=== PATIENT | male | born 1985 | race Caucasian/White ===

== ENCOUNTER 2018-09-27 09:02 | Day surgery (SDC) | payer BC ==
[2018-09-25 13:41] VITALS: BMI 35.3
--- NOTE | 2018-09-27 08:30 | P.GSHP ---
History of Present Illness H&P Date: 09/27/18 CHIEF COMPLAINT: GERD HISTORY OF PRESENT ILLNESS: The patient is a 33-year-old male who presents reports gastroesophageal reflux disease. Upper endoscopy was offered for further evaluation and management. PAST MEDICAL HISTORY: Please see list. PAST SURGICAL HISTORY: Please see list. MEDICATIONS: Please see list. ALLERGIES: Please see list. SOCIAL HISTORY: No illicit drug use FAMILY HISTORY: No reports of Crohn disease or ulcerative colitis. REVIEW OF ORGAN SYSTEMS: CONSTITUTIONAL: No reports of fevers or chills. GI: Denies any blood in stools or constipation. PHYSICAL EXAM: VITAL SIGNS: Stable GENERAL: Well-developed and pleasant in no acute distress. HEENT: No scleral icterus. Extraocular movements grossly intact. Moist buccal mucosa. NECK: Supple without lymphadenopathy. CHEST: Unlabored respirations. Equal bilateral excursions. CARDIOVASCULAR: Regular rate and rhythm. Distal 2+ pulses. ABDOMEN: Soft, nondistended. MUSCULOSKELETAL: No clubbing, cyanosis, or edema. ASSESSMENT: 1. Gastroesophageal reflux disease PLAN: 1. Recommend proceeding with an upper endoscopy Past Medical History Past Medical History: GERD/Reflux History of Any Multi-Drug Resistant Organisms: None Reported Past Surgical History: No Surgical Hx Reported Additional Past Surgical History / Comment(s): egd Past Anesthesia/Blood Transfusion Reactions: No Reported Reaction Past Psychological History: No Psychological Hx Reported Smoking Status: Former smoker Past Alcohol Use History: Occasional Additional Past Alcohol Use History / Comment(s): quit smoking 9 yrs ago. (2009) . smoked 1 1/2 - 2 ppd. Past Drug Use History: None Reported - Past Family History Father Family Medical History: Cancer Additional Family Medical History / Comment(s): NEUROENDOCRINE CANCER Medications and Allergies Home Medications Medication Instructions Recorded Confirmed Type Amoxicillin (Unknown Dose) 1 tab PO DIRECTED 09/25/18 09/25/18 History Ergocalciferol [Vitamin D2] 50,000 unit PO Q7D 09/25/18 09/25/18 History [place]-3 Fatty Acids/Fish Oil [Fish 1 each PO DAILY 09/25/18 09/25/18 History Oil 1,000 mg Softgel] Omeprazole 20 mg PO DAILY 09/25/18 09/25/18 History Allergies Allergy/AdvReac Type Severity Reaction Status Date / Time amitriptyline [From Elavil] Allergy Severe Anaphylaxis Verified 09/25/18 13:25 codeine Allergy Severe Anaphylaxis Verified 09/25/18 13:25
[~2018-09-27 09:02] MED LIST: LACTATED RINGERS 1,000 ML IV SCH; LIDOCAINE 1% 20 ML VIAL (10MG/ML) FOR IV START INTRADERMA PRN; MIDAZOLAM (PF) 2 MG/2 ML VIAL IV PRN
[2018-09-27 09:36] VITALS: RESP 18; TEMP 97.6
[2018-09-27] MEDS ORDERED: PROPOFOL 10 MG/ML 20 ML VIAL IV ONE (10:44)
[2018-09-27] MEDS ORDERED: LIDOCAINE 1% INJ 10MG/ML (20 ML MDV) ONE (10:44)
--- NOTE | 2018-09-27 10:54 | P.PCN ---
Date of Procedure: 09/27/18 Description of Procedure: PREOPERATIVE DIAGNOSIS: Gastroesophageal reflux disease. Morbid obesity. POSTOPERATIVE DIAGNOSIS: Morbid obesity. Gastritis. Gastroesophageal reflux disease. OPERATION: Esophagogastroduodenoscopy with biopsies along antrum. SURGEON: Francesca Canchola MD ANESTHESIA: MAC. INDICATIONS: The patient is a 33-year-old male who presents with a history of reflux disease. Benefits and risks of the procedure were described. Informed consent was obtained. DESCRIPTION: The patient was brought into the endoscopy suite and laid in the left lateral decubitus position. An Olympus gastroscope was passed along the posterior oropharynx down to the distal esophagus where the squamocolumnar junction was encountered at 40 cm from the incisors. The stomach was entered and no bile reflux was found. Additional findings are listed below. Biopsies with cold forceps were obtained of the antrum. The first through third portion of the duodenum was examined and unremarkable. Retroflexion of the scope confirmed Hill grade 2 lower esophageal valve. The squamocolumnar junction demonstrated LA grade A erosive esophagitis. During procedure, patient had obstructive sleep apnea. The stomach was desufflated. The patient tolerated the procedure well. FINDINGS: Squamocolumnar junction 40 cm from the incisors. Diaphragmatic hiatus at 40 cm. Hill grade 2 lower esophageal valve. LA grade A erosive esophagitis. No active duodenitis. Chronic gastritis Obstructive sleep apnea RECOMMENDATIONS: Upper endoscopy as needed. Recommend evaluation for obstructive sleep apnea Plan - Discharge Summary Discharge Rx Participant: Yes New Discharge Prescriptions: No Action Ergocalciferol [Vitamin D2] 50,000 unit PO Q7D Omeprazole 20 mg PO DAILY [place]-3 Fatty Acids/Fish Oil [Fish Oil 1,000 mg Softgel] 1 each PO DAILY Discharge Medication List Ergocalciferol [Vitamin D2] 50,000 unit PO Q7D 09/25/18 [History] [place]-3 Fatty Acids/Fish Oil [Fish Oil 1,000 mg Softgel] 1 each PO DAILY [History] Omeprazole 20 mg PO DAILY 09/25/18 [History] Follow up Appointment(s)/Referral(s): Francesca Canchola MD [STAFF PHYSICIAN] - 10/09/18 ([email or web address]) Patient Instructions/Handouts: *[facility] - (Anesthesia) Endoscopy Discharge Instructions, Upper Endoscopy (DC) Discharge Disposition: HOME SELF-CARE
[2018-09-27 11:31] VITALS: BP 112/77; PULSE 75
== END 2018-09-27 11:57 | disposition home or self-care (01) ==
LOC: ORWHC2ENDO 09:02
PROVIDERS: ATTEND Surgery Plastic and Reconstructive Surgery
DX: K21.9 Gastro-esophageal reflux disease without esophagitis (principal); K22.10 Ulcer of esophagus without bleeding; K29.50 Unspecified chronic gastritis without bleeding; Z87.891 Personal history of nicotine dependence; E66.01 Morbid (severe) obesity due to excess calories; Z68.35 Body mass index [BMI] 35.0-35.9, adult; Z79.899 Other long term (current) drug therapy; Z88.5 Allergy status to narcotic agent; Z88.8 Allergy status to other drugs, medicaments and biological substances
CPT/HCPCS: 88305; 43239; J2001; J2704

== ENCOUNTER 2019-05-24 07:34 | Inpatient (IN) | payer BC ==
[2019-05-17 13:59] VITALS: BMI 32.3
--- NOTE | 2019-05-23 18:39 | P.GSHP ---
History of Present Illness H&P Date: 05/24/19 CHIEF COMPLAINT: Paraesophageal hiatal hernia with gastroesophageal reflux disease. HISTORY OF PRESENT ILLNESS: The patient is a 34-year-old male who presents with paraesophageal hiatal hernia. He has completed an esophageal manometry including upper endoscopy workup. Now he presents for surgical intervention. PAST MEDICAL HISTORY: Please see list. PAST SURGICAL HISTORY: Please see list. MEDICATIONS: Please see list. ALLERGIES: Please see list. SOCIAL HISTORY: No illicit drug use FAMILY HISTORY: No reports of Crohn disease or ulcerative colitis. REVIEW OF ORGAN SYSTEMS: CONSTITUTIONAL: No reports of fevers or chills. GI: Denies any blood in stools or constipation. PHYSICAL EXAM: VITAL SIGNS: Stable GENERAL: Well-developed pleasant and in no acute distress. HEENT: No scleral icterus. Extraocular movements grossly intact. Moist buccal mucosa. NECK: Supple without lymphadenopathy. CHEST: Unlabored respirations. Equal bilateral excursions. CARDIOVASCULAR: Regular rate and rhythm. Distal 2+ pulses. ABDOMEN: Soft, nondistended. No peritoneal signs. MUSCULOSKELETAL: No clubbing, cyanosis, or edema. SKIN: Well-perfused. Good skin turgor. MANOMETRY: Shows no evidence of achalasia or scleroderma. ASSESSMENT: 1. Diaphragmatic paraesophageal hiatal hernia with severe gastroesophageal reflux disease. PLAN: 1. Recommend proceeding with a robotic paraesophageal hiatal hernia with possible mesh. 2. Benefits and risks of surgical intervention was discussed including possibility of open technique. 3. Inpatient hospitalization recommended of 2 nights 4. DVT prophylaxis. 5. Antibiotic prophylaxis. 6. She has also completed a very low caloric high-protein diet to address underlying hepatomegaly. Past Medical History Past Medical History: GERD/Reflux History of Any Multi-Drug Resistant Organisms: None Reported Past Surgical History: No Surgical Hx Reported Additional Past Surgical History / Comment(s): egd Past Anesthesia/Blood Transfusion Reactions: No Reported Reaction Smoking Status: Former smoker - Past Family History Father Family Medical History: Cancer Additional Family Medical History / Comment(s): NEUROENDOCRINE CANCER Medications and Allergies Home Medications Medication Instructions Recorded Confirmed Type Ergocalciferol [Vitamin D2] 50,000 unit PO Q7D 09/25/18 05/17/19 History Omeprazole 20 mg PO DAILY 09/25/18 05/17/19 History Cyanocobalamin (Vitamin B-12) 1,000 mcg PO DAILY 05/17/19 05/17/19 History [Vitamin B-12] Allergies Allergy/AdvReac Type Severity Reaction Status Date / Time amitriptyline [From Elavil] Allergy Severe Anaphylaxis Verified 05/17/19 13:54 codeine Allergy Severe Anaphylaxis Verified 05/17/19 13:54
[~2019-05-24 07:34] MED LIST changes: +ACETAMINOPHEN TAB 500 MG TAB PO STA; +CHLORHEXIDINE GLUCONATE 15 ML CUP MUCOUS MEM ONE; +DEXAMETHASONE SOD PHOSPHATE 10 MG/ML 1 ML VIAL IV ONE; +ENOXAPARIN 40 MG/0.4 ML SYRINGE SQ STA; +GABAPENTIN 300 MG CAP PO STA; +HEPARIN SODIUM,PORCINE 5,000 UNIT/ML 1 ML VIAL SQ ONE; -MIDAZOLAM (PF) 2 MG/2 ML VIAL IV PRN; +MIDAZOLAM 2 MG/2 ML VIAL IV PRN; +ONDANSETRON 4 MG/2 ML VIAL IVP ONE; +PANTOPRAZOLE 40 MG/10 ML VIAL IV STA; +SCOPOLAMINE 1.5MG/72HR PATCH TRANSDERM ONE
[2019-05-24 08:00] VITALS: RESP 16
[2019-05-24] MEDS ORDERED: fentaNYL (PF) 50 MCG/ML 2 ML AMP IV ONE (08:11)
[2019-05-24 08:52] LABS: Basophils % (A) 1 %; Eosinophils # (A) 0.1 k/uL (0-0.7); Eosinophils % (A) 3 %; HCT 43.3 % (39.0-53.0); HGB 15.1 gm/dL (13.0-17.5); Lymphocytes # (A) 2.2 k/uL (1.0-4.8); Lymphocytes % (A) 47 %; MCH 28.6 pg (25.0-35.0); MCHC 34.8 g/dL (31.0-37.0); Monocytes # (A) 0.3 k/uL (0-1.0); Monocytes % (A) 7 %; Neutrophils # (A) 1.8 k/uL (1.3-7.7); Neutrophils % (A) 39 %; Platelet Count 235 k/uL (150-450); RBC 5.28 m/uL (4.30-5.90); RDW 12.9 % (11.5-15.5); WBC 4.6 k/uL (3.8-10.6)
[2019-05-24 09:07] LABS: ALT 37 U/L (21-72); AST 26 U/L (17-59); African American GFR (CKD) >90 (>60 ml/min/1.73 sqM); Albumin 4.3 g/dL (3.5-5.0); Alkaline Phosphatase 62 U/L (38-126); Anion Gap 10 mmol/L; Blood Urea Nitrogen 19 mg/dL (9-20); Calcium 9.2 mg/dL (8.4-10.2); Carbon Dioxide 25 mmol/L (22-30); Chloride 105 mmol/L (98-107); Glucose 84 mg/dL (74-99); Potassium 4.5 mmol/L (3.5-5.1); Sodium 140 mmol/L (137-145); Total Bilirubin 0.9 mg/dL (0.2-1.3); Total Protein 7.2 g/dL (6.3-8.2)
--- NOTE | 2019-05-24 09:14 | P.ANPRN ---
Procedure Note - Anesthesia - Nerve Block Performed Bilateral Transversus Abdominis Single Time Out Performed: Yes Date of Procedure: 05/24/19 Procedure Start Time: Procedure Stop Time: Location of Patient Procedure: PreOp Indication: Acute Post-Operative Pain, Requested by Surgeon Sedation Type: Sedate with meaningful contact maintained Preparation: Sterile Prep, Sterile Dressing Position: Supine Catheter: Indwelling Needle Types: Pajunk Needle Gauge: 20 Ultrasound used to visualize needle placement: Yes Ultrasound used to observe medication spread: Yes Injectate: Other (see comment) (ropivacaine 0.25% 20 ml per side) Blood Aspirated: No Pain Paresthesia on Injection Noted: No Resistance on Injection: Normal Image Stored and Saved: Yes Events: Uneventful and Well Tolerated
[2019-05-24] MEDS ORDERED: ROCURONIUM BROMIDE 10 MG/ML 10 ML VIAL IV ONE (09:43)
[2019-05-24] MEDS ORDERED: SUCCINYLCHOLINE CHLORIDE 100 MG/5 ML SYR IV ONE (09:43)
[2019-05-24] MEDS ORDERED: PHENYLEPHRINE-0.9% NACL SYG 1 MG/10 ML SYRINGE ONE (09:43)
[2019-05-24] MEDS ORDERED: ePHEDrine SULFATE/0.9% NACL/PF 50 MG/5 ML SYRINGE IV ONE (09:43)
[2019-05-24] MEDS ORDERED: MIDAZOLAM 2 MG/2 ML VIAL ONE (09:43)
[2019-05-24] MEDS ORDERED: GLYCOPYRROLATE 0.2 MG/ML 2 ML VIAL ONE (09:43)
[2019-05-24] MEDS ORDERED: LIDOCAINE 1% INJ 10MG/ML (20 ML MDV) ONE (09:43)
[2019-05-24] MEDS ORDERED: ROPIVACAINE 5 MG/ML 30 ML VIAL ONE (09:43)
[2019-05-24] MEDS ORDERED: PROPOFOL 10 MG/ML 20 ML VIAL IV ONE (09:43)
[2019-05-24] MEDS ORDERED: NEOSTIGMINE 1 MG/ML 10 ML VIAL ONE (09:43)
[2019-05-24] MEDS ORDERED: DEXAMETHASONE SOD PHOSPHATE 4 MG/ML 1 ML VIAL ONE (09:43)
[2019-05-24] MEDS ORDERED: fentaNYL (PF) 50 MCG/ML 2 ML AMP ONE (09:43)
[2019-05-24] MEDS ORDERED: LIDOCAINE 1%-EPI 1:100,000 20 ML VIAL SQ ONE (10:17)
[2019-05-24] MEDS ORDERED: LACTATED RINGERS 1,000 ML IV ONE (10:32)
--- NOTE | 2019-05-24 11:44 | P.OP ---
Date of Procedure: 05/24/19 Description of Procedure: SURGEON: ANOOP SY MD PREOPERATIVE DIAGNOSES: 1. Symptomatic paraesophageal diaphragmatic hiatal hernia. 2. Gastroesophageal reflux disease. 3. Obesity, BMI 32.4 4. Hypertensive upper esophageal sphincter POSTOPERATIVE DIAGNOSES: 1. Symptomatic paraesophageal diaphragmatic hiatal hernia. 2. Gastroesophageal reflux disease. 3. Obesity, BMI 32.4 4. Hypertensive upper esophageal sphincter 5. Liver hemangioma left posterior lobe edge, 3 cm OPERATION: 1. Robotic-assisted da Slade Xi laparoscopic repair of incarcerated paraesophageal hiatal hernia, 3 x 4 cm, with [place] Biopatch A 8 x 8 cm. 2. Intraoperative esophagogastroduodenoscopy 3. Esophageal dilation with 56-[place] bougie for hypertensive upper esophageal sphincter ANESTHESIA: General with local anesthetic. ESTIMATED BLOOD LOSS: 5 mL SPECIMENS REMOVED: None COMPLICATIONS: None. Condition: stable Disposition: floor FINDINGS: 1. Midline incarcerated paraesophageal hiatal hernia 3 x 4 cm 2. Intraoperative upper endoscopy confirms Hill grade 1 3. Liver hemangioma, left posterior lobe edge 3 cm INDICATIONS: The patient is a 34-year-old male who presents with regurgitation, gastroesophageal reflux disease poorly controlled despite medications, and a symptomatic diaphragmatic hiatal hernia. Preoperative workup including upper endoscopy and esophageal manometry was performed demonstrating hypertensive upper esophageal sphincter. Given the severity of symptoms, he had elected for surgical intervention. Benefits and risks including bleeding, infection, recurrence, dysphagia, injury to the lung, need for further surgery was described at length. Informed consent was obtained. DESCRIPTION: The patient was brought into the operating room and placed in supine position. Preoperatively she had received heparin subcutaneously for DVT prophylaxis. After general induction, the abdomen was prepped and draped in standard sterile fashion. The patient had previously voided prior to coming to the operating room. [place]an draping was placed along the abdomen. A timeout protocol was confirmed with the surgical team, for which the patient's name, procedure to be performed including DVT prophylaxis with bilateral SCDs, and preoperative antibiotics were also confirmed. A robotic da Slade Xi system was prepped and primed. At 12 cm from the xiphoid to just below the umbilicus, proposed port sites were marked with indelible marker along the left axillary line, left mid-clavicular line with each ports were marked 10 cm from each other. A 5 mm 0 degrees laparoscopic trocar entry was performed along the left upper quadrant. The abdomen was insufflated to 15 mmHg pressure was tolerated well. Diagnostic laparoscopy demonstrated no injury to bowel, viscera, or mesentery. No injury had occurred to the small bowel or viscera. Next, one 8 mm robotic port was placed along the right upper abdomen. An 8-mm port was were placed along the left lateral abdominal wall. The camera 8-mm port was maintained along the epigastrium via the hernia defect. Another 12 mm port was placed along the left upper abdominal wall after exchanging the 5 mm port. Please note that the ports were placed at least 20 cm away from the target anatomy. Care was taken to check that each robotic arm were safely away from collision with the bed or the patient. At the epigastrium, a medium sized [place] liver retractor was placed under direct visualization with the [employer] Consultant placed under the right shoulder of the patient. All robotic arms were used. The patient was repositioned in reverse Trendelenburg position at 16-degrees after lowering the bed. The robot was docked above the right side of the patient. Using a grasper for arm 3, a grasper for arm 1, including vessel sealer for arm 2, the robotic system was docked and primed as described. Instruments were int erchanged by the registered dental assistant rda. I had sat at the console. The gastrohepatic ligament was cleaved using a vessel sealer. Next, the phrenoesophageal ligament was mobilized and the distal esophagus was mobilized circumferentially. The left and right crura was identified. Circumferentially, the hernia sac was excised. Dissection into the mediastinum was performed to release the esophagus into the abdominal cavity. Care was taken to avoid any gastrotomy. The measured defect was consistent with 3 cm axial length and 4 cm in width. After dissection, the distal esophagus of 3 cm was brought into the abdominal cavity. Once the hiatus and crura was dissected, 2-0 VLOC suture was placed to reapproximate the diaphragmatic hiatus posteriorly. To buttress the repair, a [place] Biopatch A was prepared along the back table and cut in half of a villalba-hole fashion as to reinforce the repair as an underlay. The mesh was placed along the crural repair and tagged using horizontal mattress sutures using 2-0 VLOC. I went to the head of the bed to perform intraoperative esophagogastroduodenoscopy and placement of a 56Fr bougie. The bougie was passed to dilate the upper esophageal sphincter secondary to hypertensive upper esophageal sphincter. An Olympus gastroscope was passed through posterior oropharynx. Retroflexion of the scope confirmed a Hill grade 1 lower esophageal valve. The stomach had been desufflated. No evidence of leaks were found of the esophagus or stomach. The squamocolumnar junction and hiatus was placed at 40 cm from the incisors. The GI tract with desufflated This concluded the endoscopic portion of the case. The robot was undocked from the patient. I re-scrubbed into the case. All instruments and pneumoperitoneum and specimens were evacuated from the abdominal cavity. Incisions were reapproximated using 4-0 Monocryl in an interrupted subcuticular fashion. Liquid glue was applied to the skin. Local anesthetic was infiltrated in all wounds for postop analgesia. Multiple intra-abdominal films were obtained. At the end of the procedure, needle, sponge, and instrument count was verified correct by the certified surgical tech/first assistant. The patient had tolerated the procedure well and was taken to the postanesthesia unit in stable condition. Intraoperative films were reviewed with the patient's family who was pleased with the level of care. Console time 43 minutes.
[2019-05-24] MEDS: HYDROmorphone 0.5 MG/0.5 ML SYRINGE IVP PRN ×2 (11:50→11:56)
[2019-05-24] MEDS ORDERED: NALOXONE 0.4 MG/ML 1 ML VIAL IV PRN (12:02)
[2019-05-24] MEDS ORDERED: diphenhydrAMINE 50 MG/ML 1 ML VIAL IVP PRN (12:02)
[2019-05-24] MEDS ORDERED: HYOSCYAMINE ORAL DROPS 1.875 MG/15 ML BOTTLE PO PRN (12:02)
[2019-05-24] MEDS ORDERED: ACETAMINOPHEN IV (For NPO) 1,000 MG in EMPTY BAG 1 BAG IVPB ONE (13:00)
[2019-05-24] MEDS ORDERED: KETOROLAC 30 MG/ML 1 ML VIAL IVP SCH (13:00)
[2019-05-24] MEDS ORDERED: 0.9% NACL WITH KCL 20 MEQ/L 1,000 ML IV SCH (13:00)
[2019-05-24 13:01] VITALS: TEMP 97.7
--- NOTE | 2019-05-24 14:13 | P.ANPRN ---
Procedure Note - Anesthesia - Nerve Block Performed Left Supraclavicular Single Time Out Performed: Yes Date of Procedure: 05/24/19 Procedure Start Time: 12:21 Location of Patient Procedure: PreOp Indication: Acute Post-Operative Pain Sedation Type: Sedate with meaningful contact maintained Preparation: Sterile Prep, Sterile Dressing Position: Supine Catheter: None Needle Types: On-Q Needle Gauge: 20 Ultrasound used to visualize needle placement: Yes Ultrasound used to observe medication spread: Yes Injectate: 0.5% Ropivacaine (see comment for volume) (20 ml + Decadron 4 mg) Blood Aspirated: No Pain Paresthesia on Injection Noted: No Resistance on Injection: Normal Image Stored and Saved: Yes Events: Uneventful and Well Tolerated
[2019-05-24 14:59] VITALS: BP 116/76; PULSE 83
--- NOTE | 2019-05-24 15:40 | FL ---
EXAMINATION TYPE: FL esophagus cervic/pharynx DATE OF EXAM: 05/24/2019 CLINICAL HISTORY: Status post Fermin fundoplication. Targeted examination. TECHNIQUE: Single contrast is performed 40 mL of Isovue-370. A total of 30 seconds of fluoroscopic ti me was utilized during procedure. 12 images were saved during the examination. FINDINGS: The patient swallowed contrast without difficulty and only very minimal delay at the gastr oesophageal junction. Esophageal peristalsis and motility are within normal limits. There is very mi nimally delayed flow of contrast along the diaphragmatic hiatus into the stomach, there is no evidenc e of contrast extravasation to suggest leak. No persistent hiatal hernia is seen. Patient remains asy mptomatic. IMPRESSION: No evidence of leak or significant obstruction status post Jonathan fundoplication surgery earlier today. Mild delay at the gastroesophageal junction related to postoperative edema.
--- NOTE | 2019-05-24 16:26 | P.DS ---
Providers Date of admission: 05/24/19 07:34 Expected date of discharge: 05/24/19 Attending physician: Francesca Canchola Primary care physician: Keyur Lopez - Discharge Diagnosis(es) (1) Paraesophageal hernia with obstruction but no gangrene Current Visit: Yes Status: Acute (2) Obesity (BMI 30.0-34.9) Current Visit: Yes Status: Acute (3) Gastroesophageal reflux Current Visit: Yes Status: Acute (4) Disorder of upper esophageal sphincter Current Visit: Yes Status: Acute (5) Hemangioma of lip Current Visit: Yes Status: Acute Hospital Course: POSTOPERATIVE DIAGNOSES: 1. Symptomatic paraesophageal diaphragmatic hiatal hernia. 2. Gastroesophageal reflux disease. 3. Obesity, BMI 32.4 4. Hypertensive upper esophageal sphincter 5. Liver hemangioma left posterior lobe edge, 3 cm COURSE: The patient is a 34-year-old male who presents with regurgitation, gastroesophageal reflux disease poorly controlled despite medications, and a symptomatic diaphragmatic hiatal hernia. Preoperative workup including upper endoscopy and esophageal manometry was performed demonstrating hypertensive upper esophageal sphincter. Given the severity of symptoms, he had elected for surgical intervention. Benefits and risks including bleeding, infection, recurrence, dysphagia, injury to the lung, need for further surgery was described at length. Informed consent was obtained. Postprocedure, esophagram demonstrated no evidence of leak. He was able to tolerate liquids. Discharge instructions were reviewed including. He was stable for discharge. Vital Signs Temp 97.7 F 05/24/19 13:00 Pulse 83 05/24/19 14:46 Resp 16 05/24/19 13:00 BP 116/76 05/24/19 14:46 Pulse Ox 94 L 05/24/19 14:46 Intake & Output 05/23/19 05/24/19 05/24/19 18:59 06:59 18:59 Intake Total 1450 Output Total 5 Balance 1445 Weight 114.305 kg Intake: IV 1450 Output: Estimated Blood Loss 5 Laboratory Last Values WBC 4.6 k/uL (3.8-10.6) 05/24/19 08:35 RBC 5.28 m/uL (4.30-5.90) 05/24/19 08:35 Hgb 15.1 gm/dL (13.0-17.5) 05/24/19 08:35 Hct 43.3 % (39.0-53.0) 05/24/19 08:35 MCV 82.0 fL (80.0-100.0) 05/24/19 08:35 MCH 28.6 pg (25.0-35.0) 05/24/19 08:35 MCHC 34.8 g/dL (31.0-37.0) 05/24/19 08:35 RDW 12.9 % (11.5-15.5) 05/24/19 08:35 Plt Count 235 k/uL (150-450) 05/24/19 08:35 Neutrophils % 39 % 05/24/19 08:35 Lymphocytes % 47 % 05/24/19 08:35 Monocytes % 7 % 05/24/19 08:35 Eosinophils % 3 % 05/24/19 08:35 Basophils % 1 % 05/24/19 08:35 Neutrophils # 1.8 k/uL (1.3-7.7) 05/24/19 08:35 Lymphocytes # 2.2 k/uL (1.0-4.8) 05/24/19 08:35 Monocytes # 0.3 k/uL (0-1.0) 05/24/19 08:35 Eosinophils # 0.1 k/uL (0-0.7) 05/24/19 08:35 Basophils # 0.0 k/uL (0-0.2) 05/24/19 08:35 Sodium 140 mmol/L (137-145) 05/24/19 08:35 Potassium 4.5 mmol/L (3.5-5.1) 05/24/19 08:35 Chloride 105 mmol/L (98-107) 05/24/19 08:35 Carbon Dioxide 25 mmol/L (22-30) 05/24/19 08:35 Anion Gap 10 mmol/L 05/24/19 08:35 BUN 19 mg/dL (9-20) 05/24/19 08:35 Creatinine 1.14 mg/dL (0.66-1.25) 05/24/19 08:35 Est GFR (CKD-EPI)AfAm >90 (>60 ml/min/1.73 sqM) 05/24/19 08:35 Est GFR (CKD-EPI)NonAf 83 (>60 ml/min/1.73 sqM) 05/24/19 08:35 Glucose 84 mg/dL (74-99) 05/24/19 08:35 Calcium 9.2 mg/dL (8.4-10.2) 05/24/19 08:35 Total Bilirubin 0.9 mg/dL (0.2-1.3) 05/24/19 08:35 AST 26 U/L (17-59) 05/24/19 08:35 ALT 37 U/L (21-72) 05/24/19 08:35 Alkaline Phosphatase 62 U/L (38-126) 05/24/19 08:35 Total Protein 7.2 g/dL (6.3-8.2) 05/24/19 08:35 Albumin 4.3 g/dL (3.5-5.0) 05/24/19 08:35 Procedures: OPERATION: 1. Robotic-assisted da Slade Xi laparoscopic repair of incarcerated paraesophageal hiatal hernia, 3 x 4 cm, with [place] Biopatch A 8 x 8 cm. 2. Intraoperative esophagogastroduodenoscopy 3. Esophageal dilation with 56-[place] bougie for hypertensive upper esophageal sphincter ANESTHESIA: General with local anesthetic. ESTIMATED BLOOD LOSS: 5 mL SPECIMENS REMOVED: None COMPLICATIONS: None. Condition: stable Disposition: floor FINDINGS: 1. Midline incarcerated paraesophageal hiatal hernia 3 x 4 cm 2. Intraoperative upper endoscopy confirms Hill grade 1 3. Liver hemangioma, left posterior lobe edge 3 cm Patient Condition at Discharge: Stable Plan - Discharge Summary Discharge Rx Participant: No New Discharge Prescriptions: New Bisacodyl [Dulcolax] 5 mg PO DAILY PRN #10 tablet. PRN Reason: Constipation Simethicone 40 mg/0.6 ml Drops [Mylicon Drops] 40 mg PO PCHS PRN #30 ml PRN Reason: Gas Ondansetron Odt [Zofran Odt] 4 mg PO Q8HR PRN #9 tab PRN Reason: Nausea Acetaminophen Oral Susp [Tylenol Oral Susp] 650 mg PO Q4H PRN #200 ml PRN Reason: Pain Acetaminophen Tab [Tylenol Tab] 500 mg PO Q6H PRN #30 tablet PRN Reason: Pain Discontinued Ergocalciferol [Vitamin D2] 50,000 unit PO Q7D Omeprazole 20 mg PO DAILY Cyanocobalamin (Vitamin B-12) [Vitamin B-12] 1,000 mcg PO DAILY Discharge Medication List Acetaminophen Oral Susp [Tylenol Oral Susp] 650 mg PO Q4H PRN #200 ml 05/24/19 [Rx] Acetaminophen Tab [Tylenol Tab] 500 mg PO Q6H PRN #30 tablet 05/24/19 [Rx] Bisacodyl [Dulcolax] 5 mg PO DAILY PRN #10 tablet.dr 05/24/19 [Rx] Ondansetron Odt [Zofran Odt] 4 mg PO Q8HR PRN #9 tab 05/24/19 [Rx] Simethicone 40 mg/0.6 ml Drops [Mylicon Drops] 40 mg PO PCHS PRN #30 ml 05/24/19 [Rx] Follow up Appointment(s)/Referral(s): Francesca Canchola MD [STAFF PHYSICIAN] - 05/30/19 9:45 am Keyur Lopez MD [Primary Care Provider] - 1 Week (office closed at tiem of discharge please call to make appointment+) Patient Instructions/Handouts: *[facility] - Scopalamine Patch Instructions, Full Liquid Diet (GEN), Laparoscopic Hiatal Hernia Repair (DC) Activity/Diet/Wound Care/Special Instructions: Liquid diet only. No carbonated beverages. No straws. No lifting over 4 pounds in 4 weeks, June 24. May shower. No bath tub soaks. May take [id number] Tylenol or Aleve for pain. Do not remove scopolamine patch for 3 days, if present Discharge Disposition: HOME SELF-CARE
[2019-05-24] MEDS ORDERED: ONDANSETRON 4 MG/2 ML VIAL IVP SCH (18:00)
[2019-05-24] MEDS ORDERED: SIMETHICONE 40 MG/0.6 ML DROPS 2,000 MG/30 ML BOTTLE PO SCH (18:00)
[2019-05-24] MEDS ORDERED: METOCLOPRAMIDE 5 MG/ML 2 ML VIAL IVP SCH (18:00)
[2019-05-24] MEDS ORDERED: DEXAMETHASONE SOD PHOSPHATE 4 MG/ML 1 ML VIAL IV SCH (18:00)
[2019-05-25] MEDS ORDERED: 0.9% NACL WITH KCL 20 MEQ/L 1,000 ML IV SCH (08:00)
[2019-05-25] MEDS ORDERED: PANTOPRAZOLE 40 MG/10 ML VIAL IV SCH (09:00)
[2019-05-25] MEDS ORDERED: ENOXAPARIN 40 MG/0.4 ML SYRINGE SQ SCH (09:00)
--- NOTE | 2019-05-25 12:53 | P.PN ---
Progress Note - Text Progress Note Date: 05/25/19 Patient called at home. He is doing well. Discharge instructions re-iterated. All questions addressed.
[2019-05-26] MEDS ORDERED: BISACODYL 5 MG TABLET.DR PO PRN (08:00)
== END 2019-05-24 17:15 | disposition home or self-care (01) | DRG 328 ==
LOC: 2ORMAIN 07:34 → 4SSUR 12:21
PROVIDERS: ADMIT Surgery Plastic and Reconstructive Surgery; ATTEND Surgery Plastic and Reconstructive Surgery
PROC: 0BUT4JZ Supplement Diaphragm with Synthetic Substitute, Percutaneous Endoscopic Approach (ICD-10-PCS; principal; 2019-05-24 08:55)
PROC: 8E0W4CZ Robotic Assisted Procedure of Trunk Region, Percutaneous Endoscopic Approach (ICD-10-PCS; principal; 2019-05-24 08:55)
DX: K44.0 Diaphragmatic hernia with obstruction, without gangrene (principal); D18.03 Hemangioma of intra-abdominal structures; E66.9 Obesity, unspecified; K21.9 Gastro-esophageal reflux disease without esophagitis; Z68.32 Body mass index [BMI] 32.0-32.9, adult; Z87.891 Personal history of nicotine dependence; Z79.899 Other long term (current) drug therapy; Z88.5 Allergy status to narcotic agent; Z88.8 Allergy status to other drugs, medicaments and biological substances
CPT/HCPCS: 64488; 74210; 80053; 85025

== ENCOUNTER 2022-11-03 09:14 | Day surgery (SDC) | payer BC ==
--- NOTE | 2022-11-03 09:04 | P.GSHP ---
History of Present Illness H&P Date: 11/03/22 CHIEF COMPLAINT: Ventral hernia. HISTORY OF PRESENT ILLNESS: The patient is a 37-year-old male who presents with swelling along the abdomen for over 6 month with pain and tenderness. Findings were consistent with ventral hernia. Now he presents for further evaluation and management. PAST MEDICAL HISTORY: Please see list and reviewed. PAST SURGICAL HISTORY: Please see list and reviewed. MEDICATIONS: Please see list and reviewed. ALLERGIES: Please see list and reviewed. SOCIAL HISTORY: Please see list and reviewed. FAMILY HISTORY: No reports of Crohn disease or ulcerative colitis. REVIEW OF ORGAN SYSTEMS: CONSTITUTIONAL: No reports of fevers or chills. GI: Denies any blood in stools or constipation. HEENT: Denies any trouble with vision, hearing or nosebleeds. No difficulty swallowing. LYMPHATIC: The patient denies any lumps and bumps around the neck. ENDOCRINE: Denies any thyroid disorders. Denies any blood sugar glucose intolerance. RESPIRATORY: Denies pneumonia. Denies any troubles with breathing or dyspnea on exertion. CARDIOVASCULAR: Denies any chest pain, palpitations, or recent heart attacks. GENITOURINARY: Denies any blood in urine or increased urinary frequency. MUSCULOSKELETAL: Denies any back pain, stiffness, joint arthritis. NEUROLOGIC: Denies any numbness or tingling along the distal extremities. No seizure disorders or headaches. PSYCHIATRIC: Has depression. No suidical ideation. HEMATOLOGIC: Denies any abnormal bleeding or bruising. BREASTS: Denies any breast lumps, pain or nipple discharge. PHYSICAL EXAM: VITAL SIGNS: Stable GENERAL: Well-developed pleasant female in no acute distress. HEENT: No scleral icterus. Extraocular movements grossly intact. Moist buccal mucosa. NECK: Supple without lymphadenopathy. CHEST: Unlabored respirations. Equal bilateral excursions. CARDIOVASCULAR: Regular rate and rhythm. Distal 2+ pulses. ABDOMEN: Soft, nondistended. Tender along the abdomen. Protuberant. MUSCULOSKELETAL: No clubbing, cyanosis, or edema. SKIN: Well perfused. PSYCH: Alert and oriented. No focal or lateralizing signs. ASSESSMENT: 1. Ventral hernia. 2. Morbid obesity, BMI 34.3 PLAN: 1. Recommend proceeding with robotic ventral hernia repair with mesh. 2. Benefits and risks of surgical intervention was discussed including possibility of open technique. 3. DVT prophylaxis. 4. Antibiotic prophylaxis. 5. He is elevated risk with BMI over 35 and morbid obesity. 6. Nutritional assessment for BMI over 35 addressed 7. Non-narcotic pain managment reviewed. 8. Tobacco cessation and counseling when present performed. 9. Diabetes when present with strict glycemic control reviewed. Past Medical History Past Medical History: GERD/Reflux, Respiratory Disorder, Sleep Apnea/CPAP/BIPAP Additional Past Medical History / Comment(s): COVID SEP, 2021, HAD IMMUNOGLOBIN. GERD HAS REVERSED BY BASHIR PROCEDURE. USES CPAP. History of Any Multi-Drug Resistant Organisms: None Reported Past Surgical History: No Surgical Hx Reported Additional Past Surgical History / Comment(s): egd, Bashir 05/24/2019. PLANTAR FASCIA RELEAS BOTH FEET. Past Anesthesia/Blood Transfusion Reactions: No Reported Reaction Past Psychological History: No Psychological Hx Reported Smoking Status: Former smoker Past Alcohol Use History: Occasional Additional Past Alcohol Use History / Comment(s): quit smoking 9 yrs ago. (2009). smoked 1 1/2 - 2 ppd. Past Drug Use History: None Reported - Past Family History Father Family Medical History: Cancer Additional Family Medical History / Comment(s): NEUROENDOCRINE CANCER Medications and Allergies Home Medications Medication Instructions Recorded Confirmed Type Ascorbic Acid [Vitamin C] 1 tab PO DAILY 10/31/22 10/31/22 History Cyanocobalamin (Vitamin B-12) 1 tab PO DAILY 10/31/22 10/31/22 History [Vitamin B-12] Ergocalciferol [Vitamin D2 (1250 1,250 mcg PO OROZCO 10/31/22 10/31/22 History Mcg = 97612 Iu)] Ibuprofen [Motrin Ib] 200 - 400 mg PO Q6H PRN 10/31/22 10/31/22 History Allergies Allergy/AdvReac Type Severity Reaction Status Date / Time amitriptyline [From Elavil] Allergy Severe Anaphylaxis Verified 10/31/22 11:20 codeine Allergy Severe Anaphylaxis Verified 10/31/22 11:20
[~2022-11-03 09:14] MED LIST changes: -ACETAMINOPHEN TAB 500 MG TAB PO STA; -CHLORHEXIDINE GLUCONATE 15 ML CUP MUCOUS MEM ONE; -DEXAMETHASONE SOD PHOSPHATE 10 MG/ML 1 ML VIAL IV ONE; +DEXAMETHASONE SOD PHOSPHATE 4 MG/ML 1 ML VIAL IV ONE; -ENOXAPARIN 40 MG/0.4 ML SYRINGE SQ STA; -GABAPENTIN 300 MG CAP PO STA; -HEPARIN SODIUM,PORCINE 5,000 UNIT/ML 1 ML VIAL SQ ONE; +HEPARIN SODIUM,PORCINE/PF 5,000 UNIT/0.5 ML SYRINGE SQ PRN; +LIDOCAINE 1% (10MG/ML) FOR IV START INTRADERMA PRN; -LIDOCAINE 1% 20 ML VIAL (10MG/ML) FOR IV START INTRADERMA PRN; -MIDAZOLAM 2 MG/2 ML VIAL IV PRN; -ONDANSETRON 4 MG/2 ML VIAL IVP ONE; +ONDANSETRON 4 MG/2 ML VIAL IVP PRN; -PANTOPRAZOLE 40 MG/10 ML VIAL IV STA; -SCOPOLAMINE 1.5MG/72HR PATCH TRANSDERM ONE; +ceFAZolin 3 GM in SODIUM CHLORIDE 0.9% 100 ML IVPB PRN
[2022-11-03] MEDS ORDERED: ACETAMINOPHEN TAB 500 MG TAB PO STA (09:19)
[2022-11-03] MEDS ORDERED: GABAPENTIN 300 MG CAP PO STA (09:19)
[2022-11-03 09:58] VITALS: TEMP 97.5
[2022-11-03 10:37] LABS: ALT 65 U/L (4-49); AST 39 U/L (17-59); African American GFR (CKD) >90 (>60 ml/min/1.73 sqM); Alkaline Phosphatase 75 U/L (38-126); Anion Gap 12 mmol/L; Blood Urea Nitrogen 19 mg/dL (9-20); Calcium 9.6 mg/dL (8.4-10.2); Carbon Dioxide 25 mmol/L (22-30); Chloride 103 mmol/L (98-107); Glucose 91 mg/dL (74-99); Non-African American GFR(CKD) 79 (>60 ml/min/1.73 sqM); Potassium 4.6 mmol/L (3.5-5.1); Sodium 140 mmol/L (137-145); Total Bilirubin 0.8 mg/dL (0.2-1.3); Total Protein 8.2 g/dL (6.3-8.2)
[2022-11-03 10:39] LABS: Basophils # (A) 0.1 k/uL (0-0.2); Basophils % (A) 1 %; Eosinophils # (A) 0.2 k/uL (0-0.7); Eosinophils % (A) 4 %; HCT 48.7 % (39.0-53.0); Lymphocytes # (A) 2.2 k/uL (1.0-4.8); Lymphocytes % (A) 40 %; MCH 28.6 pg (25.0-35.0); MCV 81.9 fL (80.0-100.0); Mean Platelet Volume 7.7; Monocytes # (A) 0.3 k/uL (0-1.0); Monocytes % (A) 6 %; Neutrophils # (A) 2.4 k/uL (1.3-7.7); Neutrophils % (A) 45 %; Platelet Count 275 k/uL (150-450); RBC 5.95 m/uL (4.30-5.90); RDW 13.7 % (11.5-15.5); WBC 5.3 k/uL (3.8-10.6)
[2022-11-03] MEDS ORDERED: MIDAZOLAM 2 MG/2 ML VIAL IVP ONE (10:43)
[2022-11-03] MEDS ORDERED: fentaNYL (PF) 50 MCG/ML 2 ML AMP IVP ONE (10:43)
[2022-11-03] MEDS ORDERED: LIDOCAINE 2% INJ 20 MG/ML (2 ML VIAL) ONE (11:44)
[2022-11-03] MEDS ORDERED: PROPOFOL 10 MG/ML 20 ML VIAL IV ONE (11:44)
[2022-11-03] MEDS ORDERED: ROCURONIUM 10 MG/ML (5 ML VIAL) IV ONE (11:44)
[2022-11-03] MEDS ORDERED: GLYCOPYRROLATE 0.2 MG/ML 2 ML VIAL ONE (11:44)
[2022-11-03] MEDS ORDERED: HYDROmorphone (PF) 1 MG/ML ONE (11:44)
[2022-11-03] MEDS ORDERED: fentaNYL (PF) 50 MCG/ML 2 ML AMP ONE (11:44)
[2022-11-03] MEDS ORDERED: ROPIVACAINE 5 MG/ML 30 ML VIAL ONE (11:44)
[2022-11-03] MEDS ORDERED: NEOSTIGMINE 1 MG/ML 10 ML VIAL ONE (11:44)
[2022-11-03] MEDS ORDERED: MIDAZOLAM 2 MG/2 ML VIAL ONE (11:44)
[2022-11-03] MEDS ORDERED: BUPIVACAIN-EPI 0.25%-1:200,000 30 ML VIAL SQ ONE ×2 (12:12→12:24)
[2022-11-03] MEDS ORDERED: LACTATED RINGERS 1,000 ML IV ONE (13:27)
[2022-11-03] MEDS: HYDROmorphone 0.5 MG/0.5 ML SYRINGE IVP PRN ×2 (13:57→14:03)
--- NOTE | 2022-11-03 14:24 | P.OP ---
Date of Procedure: 11/03/22 Description of Procedure: SURGEON: FRANCESCA CANCHOLA MD PREOPERATIVE DIAGNOSES: 1. Initial epigastric ventral umbilical hernia with incarceration 2. Morbid obesity due to excess calories, BMI 34.6 3. Obstructive sleep apnea 4. Gastroesophageal reflux disease POSTOPERATIVE DIAGNOSES: 1. Initial epigastric ventral hernia with incarceration, 2.5 cm 2. Morbid obesity due to excess calories, BMI 34.6 3. Obstructive sleep apnea 4. Gastroesophageal reflux disease OPERATION: 1. Robotic-assisted da Slade Xi laparoscopic repair of initial incarcerated epigastric ventral hernia with mesh, ventralight ST mesh 11.4 cm Anesthesia: GETA, regional, local Estimated Blood Loss (ml): 5 Pathology: 1. Incarcerated upper midline ventral hernia defect COMPLICATIONS: None. Operative Findings: 1. Umbilical hernia defect 2.5 x 3 cm 2.5 with swish cheese defect 2. Fascia repaired using #1 V-lock suture INDICATIONS: The patient is a 37-year-old male who presents with a new periumbilical ventral hernia for over 6 months. Surgical intervention with laparoscopic versus robotic and open techniques were reviewed. Placement of mesh was also reviewed. Benefits and risks were thoroughly described. Informed consent was obtained. DESCRIPTION OF PROCEDURE: The patient was brought into the operating room and laid in supine position. After general induction, the abdomen had been prepped and draped in standard sterile fashion. Ioban draping was also placed. Prior to incision, a timeout protocol was confirmed with surgical team regarding the patient's name including procedures to be performed. The robot was primed prior to the procedure. A field block using local anesthetic was placed along hernia site including the proposed port sites. Initial incision was made with an #11 blade along the left upper quadrant. A 0 degree 5 mm laparoscopic trocar entry was performed and insufflated. Three 8 mm ports were placed along the left lateral abdominal wall under direct localization after exchanging the 5-mm for an 8 mm port. Placements of the ports were 15 cm from the target anatomy and 10 cm apart. An accessory 12 mm port was placed at the left upper quadrant for exchange of mesh including sutures. The [employer] robot was previously primed, prepped and draped then docked from the right side of the patient onto the left side of the patient. I then sat at the robot [employer] Xi console where working arms of the robot including Bovie cautery connected to robotic scissors, needle rental car ferry driver, and graspers placed by the teaching assistant. Incarcerated preperitoneal contents were found along the umbilicus. The defects were reduced with preperitoneal fat: umbilical hernia defect 2.5 x 2.5 cm. The incarcerated contents were reduced as the peritoneal fat was cleaned from the abdominal wall. Next, hemostasis was checked with cautery. The hernia defects were oversewn using #1 nonabsorbable V-lock suture with fascial imbrication x 2. Next, ventralight ST mesh 11.4 cm was placed with the rough side towards the abdominal wall as to cover the epigastric including umbilical defect. 2-0 VLOC 9 inch absorbable sutures were used to fixate the mesh. A final endoscopic imaging was obtained. All instruments and pneumoperitoneum were evacuated from the abdominal cavity. The da [employer] Xi robot was undocked from the patient. I re-scrubbed into the case for closure of incisions. The fascia of the 12-mm port was probed and less than 8-mm in size. The incisions were reapproximated using 4-0 Monocryl in an interrupted subcuticular fashion. Liquid glue was applied to the skin after cleansing the skin with normal saline and dilute hydrogen peroxide. An abdominal binder was placed. An umbilical dressing was placed prior. At the end of the procedure, needle, sponge, and instrument count had been verified correct by salesperson surgical appliances. The patient was taken to the postanesthesia care unit in stable condition. Plan - Discharge Summary Discharge Rx Participant: No New Discharge Prescriptions: New Ibuprofen [Motrin] 600 mg PO Q8HR PRN #30 tab PRN Reason: Pain Acetaminophen Tab [Tylenol Tab] 1,000 mg PO Q6HR PRN #30 tablet PRN Reason: Pain Simethicone [Gas-X] 125 mg PO AC-TID PRN #20 capsule PRN Reason: Pain Continue Cyanocobalamin (Vitamin B-12) [Vitamin B-12] 1 tab PO DAILY Ascorbic Acid [Vitamin C] 1 tab PO DAILY Ergocalciferol [Vitamin D2 (1250 Mcg = 87580 Iu)] 1,250 mcg PO OROZCO Discontinued Ibuprofen [Motrin Ib] 200 - 400 mg PO Q6H PRN PRN Reason: Pain Discharge Medication List Ascorbic Acid [Vitamin C] 1 tab PO DAILY 10/31/22 [History] Cyanocobalamin (Vitamin B-12) [Vitamin B-12] 1 tab PO DAILY 10/31/22 [History] Ergocalciferol [Vitamin D2 (1250 Mcg = 55959 Iu)] 1,250 mcg PO OROZCO 10/31/22 [History] Acetaminophen Tab [Tylenol Tab] 1,000 mg PO Q6HR PRN #30 tablet 11/03/22 [Rx] Ibuprofen [Motrin] 600 mg PO Q8HR PRN #30 tab 11/03/22 [Rx] Simethicone [Gas-X] 125 mg PO AC-TID PRN #20 capsule 11/03/22 [Rx] Follow up Appointment(s)/Referral(s): Francesca Canchola MD [STAFF PHYSICIAN] - 11/08/22 (TELEHEALTH ONLY Please be advised that the office will be closed temporarily from November 07 to November 28. ) Patient Instructions/Handouts: *Surgery [facility] - (Anesthesia) Discharge Instructions Outpatient Surgery, Laparoscopic Herniorrhaphy (PRE), Ventral Hernia Repair (GEN), Abdominal Binder (DC), *[facility] - Managing Your Pain After Surgery Without Opioids Activity/Diet/Wound Care/Special Instructions: DO NOT REMOVE UMBILICAL DRESSING. Using antibacterial soap. No lifting over 4 pounds 4 weeks, December 04December shower. No bathtub soaks for 2 weeks, November 17 Wear abdominal binder daily for comfort except for showering. Use ice along incisions for today to prevent swelling. Take tylenol, aleve/ibuprofen, simethicone scheduled for 3 days for best pain re lief Discharge Disposition: HOME SELF-CARE
[2022-11-03] MEDS ORDERED: SIMETHICONE 80 MG CHEWABLE PO STA ×2 (14:40→14:41)
[2022-11-03] MEDS ORDERED: SIMETHICONE 80 MG CHEWABLE PO ONE (14:53)
[2022-11-03] MEDS ORDERED: IBUPROFEN 600 MG TAB PO ONE (14:53)
--- NOTE | 2022-11-03 14:55 | P.ANPRN ---
Procedure Note - Anesthesia - Nerve Block Performed Bilateral Erector Spinae Single Date of Procedure: 11/03/22 Procedure Start Time: 10:42 Procedure Stop Time: 10:53 Location of Patient: PreOp Indication: Acute Post-Operative Pain, Requested by Surgeon Sedation Type: Sedate with meaningful contact maintained Preparation: Sterile Prep Position: Sitting Needle Gauge: 20 Ultrasound used to visualize needle placement: Yes Ultrasound used to observe medication spread: Yes Injectate: 0.5% Ropivacaine (see comment for volume) (30) Blood Aspirated: No Pain Paresthesia on Injection Noted: No Resistance on Injection: Normal Image Stored and Saved: Yes Events: Uneventful and Well Tolerated
[2022-11-03 15:39] VITALS: BP 125/83; PULSE 99; RESP 18
[2022-11-03] MEDS ORDERED: TAMSULOSIN 0.4 MG CAP.ER.24H PO STA (16:35)
[2022-11-03] MEDS ORDERED: KETOROLAC 15 MG/ML 1 ML VIAL IVP PRN (16:37)
[2022-11-04] MEDS ORDERED: MELOXICAM 7.5 MG TAB PO SCH (09:00)
== END 2022-11-03 16:29 | disposition home or self-care (01) ==
LOC: OR 09:14
PROVIDERS: ATTEND Surgery Plastic and Reconstructive Surgery
DX: K43.6 Other and unspecified ventral hernia with obstruction, without gangrene (principal); G89.18 Other acute postprocedural pain; E66.01 Morbid (severe) obesity due to excess calories; G47.33 Obstructive sleep apnea (adult) (pediatric); K21.9 Gastro-esophageal reflux disease without esophagitis; F10.90 Alcohol use, unspecified, uncomplicated; Z68.34 Body mass index [BMI] 34.0-34.9, adult; Z86.16 Personal history of COVID-19; Z99.89 Dependence on other enabling machines and devices; Z87.891 Personal history of nicotine dependence; Z80.8 Family history of malignant neoplasm of other organs or systems; Z79.1 Long term (current) use of non-steroidal anti-inflammatories (NSAID); Z79.899 Other long term (current) drug therapy; Z88.8 Allergy status to other drugs, medicaments and biological substances; Z88.5 Allergy status to narcotic agent
CPT/HCPCS: 64461; 80053; 85025; 49592; C1781; J2250; J1100; J2710; J0690; J2405; J3010; J1170 ×2; J2795; J2704; J1644; J2001; 88302